=== PATIENT | female | born 1960 | race Caucasian/White ===

== ENCOUNTER 2017-11-07 16:54 | Emergency (ER) | payer OTHER ==
[~2017-11-07 16:54] MED LIST: ADVAIR 500-501 EACH INH; ADVAIR DISKUS1 UNIT INH; AZITHROMYCIN250 MG PO; CITALOPRAM HBR40 MG PO; CYCLOBENZAPRINE10 M1 PO; FLEXERIL10 MG PO; HYDROCHLOROTHIA25 M1 PO; HYDROXYZINE PAM25 MG PO; HYDROXYZINE PAM50 M1 PO; MOBIC15 M1 PO; MOTRIN 600 MG600 MG PO; PERCOCET 325 MG1 TA2 PO; PREDNICOT10 MG PO; PREDNISONE10 MG PO; PREDNISONE20 M1 PO; SYMBICORT 80/4.1 PUF INH; TOPROL XL100 M1 PO; VENTOLIN HFA18 GM INH
== END 2017-11-07 17:30 | disposition admitted as inpatient to this hospital (09) ==
LOC: ERH 16:54
DX: M54.5 Low back pain (principal)